=== PATIENT | female | born 2000 | race Caucasian/White ===

== ENCOUNTER 2023-04-03 21:21 | Inpatient (IN) | payer OTHER ==
[~2023-04-03] VITALS: Ht 160 cm; Wt 79.2 kg
[2023-04-04] MEDS ORDERED: HOME MED LIST COMPLETE! XX SCH (06:20)
[2023-04-04] MEDS: NICOTINE 14 MG/24 HR TRANSDERMAL TD SCH (09:00)
[2023-04-04 09:25] LABS: HEMATOCRIT 49.6 % (36.0-47.0); HEMOGLOBIN 16.5 g/dl (12.0-15.5); MEAN CORPUSCULAR HEMOGLOBIN 29.5 pg (27.0-33.0); MEAN CORPUSCULAR HGB CONC 33.3 g/dl (32.0-36.5); MEAN CORPUSCULAR VOLUME 88.7 fl (80.0-96.0); PLATELET COUNT, AUTOMATED 197 10^3/uL (150-450); RED BLOOD COUNT 5.59 10^6/uL (4.00-5.40)
[2023-04-04 10:03] LABS: HCG, SERUM QUALITATIVE NEGATIVE (NEGATIVE)
[2023-04-04 10:11] LABS: ALBUMIN 4.9 G/DL (3.2-5.2); ALKALINE PHOSPHATASE 91 U/L (46-116); ALT/SGPT 30 U/L (7.0-40); AST/SGOT 23 U/L (<34); BILIRUBIN,DIRECT 0.2 MG/DL (<0.4); BLOOD UREA NITROGEN 7 MG/DL (9-23); CALCIUM LEVEL 9.9 MG/DL (8.5-10.1); CARBON DIOXIDE LEVEL 23 MMOL/L (20-31); CHLORIDE LEVEL 105 MMOL/L (98-107); CREATININE FOR GFR 0.58 MG/DL (0.55-1.30); GLOMERULAR FILTRATION RATE > 60.0 (>60); GLUCOSE, FASTING 90 MG/DL (60-100); POTASSIUM SERUM 4.2 MMOL/L (3.5-5.1); SALICYLATE LEVEL 3.8 MG/DL (<30); SODIUM LEVEL 138 MMOL/L (136-145)
[2023-04-04 10:14] LABS: THYROID STIMULATING HORMONE 3.012 uIU/ML (0.55-4.78)
[2023-04-04 10:43] LABS: AMPHETAMINES LEVEL URINE NEGATIVE (NEGATIVE); BARBITURATES URINE NEGATIVE (NEGATIVE); BENZODIAZEPINES URINE NEGATIVE (NEGATIVE); COCAINE METABOLITE URINE NEGATIVE (NEGATIVE); METHADONE URINE NEGATIVE (NEGATIVE); OPIATES URINE NEGATIVE (NEGATIVE); PHENCYCLIDINE URINE NEGATIVE (NEGATIVE)
[2023-04-04 10:48] LABS: CANNABINOIDS URINE POSITIVE (NEGATIVE)
[2023-04-04 10:54] LABS: ETHYL ALCOHOL (ETHANOL) < 0.003 % (0.000-0.010)
[2023-04-04 10:56] LABS: ACETAMINOPHEN LEVEL < 2.0 UG/ML (10.0-20.0)
[2023-04-04] MEDS ORDERED: MOM 30ML SUSPENSION UDC PO PRN (12:40)
[2023-04-04] MEDS ORDERED: IBUPROFEN 400MG TAB PO PRN (12:40)
[2023-04-04] MEDS ORDERED: traZODone 50 MG TAB PO PRN (12:40)
[2023-04-04] MEDS ORDERED: MAALOX 30 ML SUSP *UDC PO PRN (12:40)
[2023-04-04 15:09] VITALS: BP 138/101; TEMP 96.8; O2SAT 100
[2023-04-04] MEDS: diphenhydrAMINE 25MG CAP PO PRN (17:50)
[2023-04-05 06:29] VITALS: BP 124/87; TEMP 98.7; O2SAT 95
[2023-04-05] MEDS: NICOTINE 14 MG/24 HR TRANSDERMAL TD SCH (08:20)
[2023-04-05] MEDS: ESCITALOPRAM OXALATE 10 MG TAB (LEXAPRO) PO SCH (10:36)
[2023-04-05] MEDS: diphenhydrAMINE 25MG CAP PO PRN ×2 (13:22→20:23)
[2023-04-05 16:06] VITALS: BP 128/92; TEMP 98.5; O2SAT 95
[2023-04-05] MEDS: MIRTAZAPINE 7.5MG PER 1/2 TABLET PO SCH (20:22)
[2023-04-06 06:35] VITALS: BP 131/80; TEMP 98.2; O2SAT 99
[2023-04-06] MEDS: diphenhydrAMINE 25MG CAP PO PRN ×2 (07:57→21:01)
[2023-04-06] MEDS: ESCITALOPRAM OXALATE 10 MG TAB (LEXAPRO) PO SCH (08:01)
[2023-04-06] MEDS: NICOTINE 14 MG/24 HR TRANSDERMAL TD SCH (08:01)
[2023-04-06] MEDS ORDERED: ESCITALOPRAM OXALATE 10 MG TAB (LEXAPRO) PO SCH (09:00)
[2023-04-06 18:31] VITALS: BP 126/89; TEMP 96.9; O2SAT 96
[2023-04-06] MEDS: MIRTAZAPINE 7.5MG PER 1/2 TABLET PO SCH (21:02)
[2023-04-07 05:58] VITALS: BP 136/88; TEMP 98.2; O2SAT 98
[2023-04-07] MEDS: NICOTINE 14 MG/24 HR TRANSDERMAL TD SCH (08:50)
[2023-04-07] MEDS: ESCITALOPRAM OXALATE 10 MG TAB (LEXAPRO) PO SCH (08:51)
[2023-04-07] MEDS: ACETAMINOPHEN TAB 650MG DOSE (2X325MG) PO PRN (14:06)
[2023-04-07 16:52] VITALS: BP 138/94; TEMP 98.4; O2SAT 95
[2023-04-07] MEDS: diphenhydrAMINE 25MG CAP PO PRN (20:57)
[2023-04-07] MEDS: MIRTAZAPINE 7.5MG PER 1/2 TABLET PO SCH (20:57)
[2023-04-08 06:31] VITALS: BP 117/74; TEMP 97.5; O2SAT 97
[2023-04-08] MEDS: diphenhydrAMINE 25MG CAP PO PRN ×2 (08:22→20:18)
[2023-04-08] MEDS: ESCITALOPRAM OXALATE 10 MG TAB (LEXAPRO) PO SCH (08:22)
[2023-04-08] MEDS: NICOTINE 14 MG/24 HR TRANSDERMAL TD SCH (08:23)
[2023-04-08] MEDS: ACETAMINOPHEN TAB 650MG DOSE (2X325MG) PO PRN (13:46)
[2023-04-08 16:13] VITALS: BP 136/83; TEMP 96.8; O2SAT 96
[2023-04-08] MEDS: MIRTAZAPINE 7.5MG PER 1/2 TABLET PO SCH (20:18)
[2023-04-09 06:41] VITALS: BP 123/84; TEMP 97.8; O2SAT 96
[2023-04-09] MEDS: ESCITALOPRAM OXALATE 10 MG TAB (LEXAPRO) PO SCH (07:51)
[2023-04-09] MEDS: NICOTINE 14 MG/24 HR TRANSDERMAL TD SCH (07:51)
[2023-04-09 16:11] VITALS: BP 123/74; TEMP 98.5; O2SAT 100
[2023-04-09] MEDS: MIRTAZAPINE 7.5MG PER 1/2 TABLET PO SCH (20:04)
[2023-04-09] MEDS: diphenhydrAMINE 25MG CAP PO PRN (20:04)
[2023-04-10 06:30] VITALS: BP 113/55; TEMP 97.8; O2SAT 100
[2023-04-10] MEDS: ESCITALOPRAM OXALATE 10 MG TAB (LEXAPRO) PO SCH (08:24)
[2023-04-10] MEDS: NICOTINE 14 MG/24 HR TRANSDERMAL TD SCH (08:26)
[2023-04-10] MEDS ORDERED: MIRT-10 PO (09:12)
[2023-04-10] MEDS ORDERED: LEXA1TAB PO (09:12)
== END 2023-04-10 13:11 | disposition home or self-care (01) | DRG 756 ==
LOC: M ED 21:21 → M ED INP 04-04 12:40 → M PSY 04-04 15:20
PROVIDERS: ADMIT Student in an Organized Health Care Education/Training Program; ATTEND Student in an Organized Health Care Education/Training Program
DX: F41.1 Generalized anxiety disorder (principal); F43.10 Post-traumatic stress disorder, unspecified; E03.9 Hypothyroidism, unspecified; Z91.410 Personal history of adult physical and sexual abuse; Z83.3 Family history of diabetes mellitus; Z88.8 Allergy status to other drugs, medicaments and biological substances; Z91.040 Latex allergy status; Z20.822 Contact with and (suspected) exposure to COVID-19; Z91.51 Personal history of suicidal behavior; Z81.8 Family history of other mental and behavioral disorders

== ENCOUNTER → 2024-07-10 | Outpatient (CLI) | payer OTHER ==
[~2024-07-10] MED LIST: HYDR-3363; LEXA1TAB PO; MIRT-10 PO
[2024-07-10 17:29] LABS: BASO % 0.4 % (0.0-1.0); EOS # 0.1 10^3/uL (0.0-0.5); EOS % 1.5 % (0.0-3.0); HEMATOCRIT 46.5 % (36.0-47.0); HEMOGLOBIN 15.8 g/dl (12.0-15.5); LYMPH % 24.6 % (24.0-44.0); MEAN CORPUSCULAR HEMOGLOBIN 29.8 pg (27.0-33.0); MEAN CORPUSCULAR VOLUME 87.7 fl (80.0-96.0); MONO # 0.5 10^3/uL (0.0-0.8); MONO % 5.6 % (2.0-8.0); NEUTROPHILS # 5.4 10^3/uL (1.5-8.5); NEUTROPHILS % 67.6 % (36.0-66.0); PLATELET COUNT, AUTOMATED 187 10^3/uL (150-450)
[2024-07-15 11:43] LABS: ERYTHROPOIETIN 11.1 mIU/mL (2.6-18.5)
[2024-07-17 09:51] LABS: JAK2 MUTATIONS FOR PATH SENDOU See Pathology Report
== END ==
LOC: M LAB 16:52
PROVIDERS: ATTEND Internal Medicine Hematology & Oncology
DX: D75.1 Secondary polycythemia (principal)

== ENCOUNTER → 2024-09-10 | Outpatient (CLI) | payer MEDICAID, OTHER ==
[~2024-09-10] MED LIST changes: -HYDR-3363; +HYDR-3363 PO; +LEXA1TAB2 PO; +MIRT1TAB16 PO
[2024-09-10 18:18] LABS: HEMATOCRIT 49.2 % (36.0-47.0); HEMOGLOBIN 16.2 g/dl (12.0-15.5); MEAN CORPUSCULAR HEMOGLOBIN 29.6 pg (27.0-33.0); MEAN CORPUSCULAR HGB CONC 32.9 g/dl (32.0-36.5); MEAN CORPUSCULAR VOLUME 89.9 fl (80.0-96.0); PLATELET COUNT, AUTOMATED 200 10^3/uL (150-450); RED BLOOD COUNT 5.47 10^6/uL (4.00-5.40); WHITE BLOOD COUNT 7.1 10^3/uL (4.0-10.0)
== END ==
LOC: M LAB 17:20
PROVIDERS: ATTEND Physician Assistant Medical
DX: F64.9 Gender identity disorder, unspecified (principal)

== ENCOUNTER → 2024-11-13 | Outpatient (CLI) | payer OTHER ==
[2024-11-13 17:42] LABS: HEMATOCRIT 48.1 % (36.0-47.0); MEAN CORPUSCULAR HEMOGLOBIN 29.7 pg (27.0-33.0); MEAN CORPUSCULAR HGB CONC 33.3 g/dl (32.0-36.5); MEAN CORPUSCULAR VOLUME 89.2 fl (80.0-96.0); PLATELET COUNT, AUTOMATED 208 10^3/uL (150-450); RED BLOOD COUNT 5.39 10^6/uL (4.00-5.40); WHITE BLOOD COUNT 7.3 10^3/uL (4.0-10.0)
== END ==
LOC: M LAB 16:56
PROVIDERS: ATTEND Physician Assistant
DX: D75.1 Secondary polycythemia (principal)

== ENCOUNTER → 2025-02-14 | Outpatient (CLI) | payer OTHER ==
[2025-02-14 14:39] LABS: HEMATOCRIT 51.5 % (36.0-47.0); MEAN CORPUSCULAR VOLUME 87.7 fl (80.0-96.0); PLATELET COUNT, AUTOMATED 195 10^3/uL (150-450); RED BLOOD COUNT 5.87 10^6/uL (4.00-5.40); WHITE BLOOD COUNT 8.6 10^3/uL (4.0-10.0)
[2025-02-14 15:10] LABS: ALBUMIN 4.5 G/DL (3.2-5.2); BILIRUBIN,DIRECT 0.1 MG/DL (<0.4); BILIRUBIN,TOTAL 0.5 MG/DL (0.3-1.2); CHOLESTEROL RISK RATIO 7.63 (<5); HDL CHOLESTEROL 47.8 MG/DL (>40); LDL CHOLESTEROL 281.4 MG/DL (<100); NON-HDL-C 317.2 MG/DL
[2025-02-14 15:12] LABS: ESTRADIOL 48.7 PG/ML
== END ==
LOC: M LAB 13:45
PROVIDERS: ATTEND Physician Assistant Medical
DX: F64.9 Gender identity disorder, unspecified (principal); Z13.1 Encounter for screening for diabetes mellitus; Z13.21 Encounter for screening for nutritional disorder

== ENCOUNTER → 2025-02-14 | Outpatient (CLI) | payer OTHER ==
[2025-02-14 14:39] LABS: BASO % 0.5 % (0.0-1.0); EOS # 0.2 10^3/uL (0.0-0.5); EOS % 1.8 % (0.0-3.0); HEMATOCRIT 50.7 % (36.0-47.0); HEMOGLOBIN 17.1 g/dl (12.0-15.5); LYMPH # 1.8 10^3/uL (1.5-5.0); LYMPH % 21.1 % (24.0-44.0); MEAN CORPUSCULAR HEMOGLOBIN 29.1 pg (27.0-33.0); MEAN CORPUSCULAR HGB CONC 33.7 g/dl (32.0-36.5); MEAN CORPUSCULAR VOLUME 86.2 fl (80.0-96.0); MONO # 0.4 10^3/uL (0.0-0.8); MONO % 4.3 % (2.0-8.0); NEUTROPHILS % 72.1 % (36.0-66.0); PLATELET COUNT, AUTOMATED 215 10^3/uL (150-450); RED BLOOD COUNT 5.88 10^6/uL (4.00-5.40); WHITE BLOOD COUNT 8.4 10^3/uL (4.0-10.0)
[2025-02-14 15:09] LABS: ALBUMIN 4.4 G/DL (3.2-5.2); ALKALINE PHOSPHATASE 122 U/L (35-104); ALT/SGPT 36 U/L (7.0-40); AST/SGOT 15 U/L (<34); BILIRUBIN,TOTAL 0.5 MG/DL (0.3-1.2); BLOOD UREA NITROGEN 13 MG/DL (9-23); CALCIUM LEVEL 9.6 MG/DL (8.5-10.1); CARBON DIOXIDE LEVEL 25 MMOL/L (20-31); CHLORIDE LEVEL 105 MMOL/L (98-107); CREATININE FOR GFR 0.63 MG/DL (0.55-1.30); GLOMERULAR FILTRATION RATE > 90.0 (>60); GLUCOSE, FASTING 90 MG/DL (60-100); POTASSIUM SERUM 4.4 MMOL/L (3.5-5.1); SODIUM LEVEL 138 MMOL/L (136-145)
== END ==
LOC: M LAB 13:47
PROVIDERS: ATTEND Dietitian, Registered
DX: D75.1 Secondary polycythemia (principal)

== ENCOUNTER → 2025-06-09 | Outpatient (CLI) | payer OTHER ==
[~2025-06-09] MED LIST changes: +TEST200I14
[2025-06-09 18:20] LABS: PLATELET COUNT, AUTOMATED 171 10^3/uL (150-450)
[2025-06-09 18:35] LABS: ALT/SGPT 36.0 U/L (7.0-40); AST/SGOT 23.0 U/L (<34); CHOLESTEROL LEVEL 326.0 MG/DL (<200); CHOLESTEROL RISK RATIO 7.14 (<5); LDL CHOLESTEROL 236.4 MG/DL (<100); NON-HDL-C 280.4 MG/DL; TRIGLYCERIDES LEVEL 220.0 MG/DL (<150)
[2025-06-09 18:37] LABS: ESTRADIOL 58.3 PG/ML
[2025-06-14 22:28] LABS: TESTOSTERONE FREE (DIRECT) 8.2 pg/mL (0.1-6.4); TESTOSTERONE TOTAL FOR T&D 56.0 ng/dL (2-45)
== END ==
LOC: M LAB 17:37
PROVIDERS: ATTEND Physician Assistant Medical
DX: F64.9 Gender identity disorder, unspecified (principal); Z13.1 Encounter for screening for diabetes mellitus; D45 Polycythemia vera

== ENCOUNTER → 2025-09-09 | Outpatient (CLI) | payer OTHER ==
[2025-09-09 14:56] LABS: PLATELET COUNT, AUTOMATED 217 10^3/uL (150-450)
== END ==
LOC: M LAB 14:01
PROVIDERS: ATTEND Nurse Practitioner Family
DX: F64.0 Transsexualism (principal)